=== PATIENT | female | born 1995 | race Caucasian/White ===

== ENCOUNTER 2018-05-26 17:12 | Emergency (ER) | payer OTHER ==
[~2018-05-26] VITALS: Ht 157.5 cm; Wt 68.0 kg
[2018-05-26 17:26] VITALS: BP 117/68
--- NOTE | 2018-05-26 17:28 | NUR ---
ED Nurse Note: a/ox4. ambulated in to ER due to medrefill for prozac 10mg daily and zyprexa 7.5mg HS.
[2018-05-26] MEDS ORDERED: ZYPREXA7.5 MG ORAL (17:29)
[2018-05-26] MEDS ORDERED: PROZAC10 MG ORAL ×2 (17:29→17:49)
--- NOTE | 2018-05-26 17:42 | NUR ---
ED Nurse Note: pt reports last dose she took was May 08, 2018
[2018-05-26] MEDS ORDERED: ZYPREXA5 MG ORAL (17:49)
--- NOTE | 2018-05-26 17:49 | Emergency Room Report ---
History of Present Illness General Chief Complaint: Medication Refill Source: Patient Present Illness HPI 23-year-old female patient presents the ER requesting refill of medications. Patient states that she takes Prozac and Zyprexa. States that she has a history of bipolar, ADD, ODD, MMR, PTSD. States she does not currently have a primary care provider is not taking medications for the past couple weeks since being released from incarceration, states she was receiving medications while incarcerated. Denies acute complaints or side effects associated with medication use. Denies fever, chest pain, shortness of breath. Also requesting refill of Chesterton pain medication. States takes Chest[place] for back pain. Denies acute injury or trauma. Denies bowel or bladder incontinence. States pain is been present for "a while". Denies radiation of pain. Allergies: Coded Allergies: ACETAMINOPHEN (Verified Allergy, Unknown, 05/26/18) IBUPROFEN (Verified Allergy, Unknown, 05/26/18) [place] (Verified Allergy, Unknown, 05/26/18) Patient History Past Medical History: see triage record Now: No Reviewed Nursing Documentation: PMH: Agreed; PSxH: Agreed Nursing Documentation-PMH Hx Asthma: Yes Review of Systems All Other Systems: negative except mentioned in HPI Physical Exam Vital Signs Date Time Temp Pulse Resp B/P (MAP) Pulse Ox O2 Delivery O2 Flow Rate FiO2 05/26/18 17:25 98.2 80 18 117/68 97 Room Air Sp02 EP Interpretation: reviewed, normal General Appearance: well appearing, no apparent distress, alert, GCS 15, non- toxic Head: normocephalic, atraumatic Eyes: bilateral eye normal inspection, bilateral eye PERRL ENT: hearing grossly normal, normal pharynx, no angioedema, normal voice, uvula midline, moist mucus membranes Neck: full range of motion Respiratory: lungs clear, normal breath sounds, no rhonchi, no respiratory distress, no accessory muscle use, no wheezing, speaking full sentences Cardiovascular #1: regular rate, rhythm, no edema Musculoskeletal: back normal, digits/nails normal, gait/station normal, normal range of motion, non-tender Neurologic: alert, oriented x3, responsive, motor strength/tone normal, sensory intact Psychiatric: mood/affect normal Skin: no rash Medical Decision Making PA Attestation Dr. Blanton is my supervising Physician whom patient management has been discussed with. Diagnostic Impression: Primary Impression: Encounter for medication refill ER Course Pt. presents to the ED requesting prescription refill. Multiple differentials were considered. Vital signs: are WNL, pt. is afebrile ORDERS: PE benign, denies acute complaints. Informed patient would provide refill of Prozac and Zyprexa medication however we will not refill Chest[place] pain medication. Needs to followup with PCP and mental health professional for further treatment and monitoring of medications. Will provide patient with 10 day supply of medication. Informed patient that Chest[place] contains Tylenol, likely does not have allergy to acetaminophen. Informed patient may take acetaminophen for back pain symptoms when present. Advised on ice and heat. Contact primary care provider for further treatment. Follow-up with mental health professional. Provided with contact information for mental health urgent care. Informed patient ER cannot provide refills in the future; followup, management and prescription of long-term medications must be performed by primary care provider. ER precautions given. Patient in the ER with family member, discharged with family member. DISCHARGE: At this time pt is stable for d/c to home. Patient is resting comfortably, in no acute distress, nontoxic appearing, talking without difficulty. Patient to take medications as instructed Will provide with patient care instructions and any necessary prescriptions. Care plan and follow-up instructions provided. Patient instructed to follow-up with primary care provider in 3 - 5 days. Patient questions asked and answered. Patient reports understanding and agreement to treatment plan. ER precautions given. Patient instructed to return to ER immediately for any new or worsening of symptoms including but not limited to increasing SOB, persistent fever. - Please note that this Emergency Department Report was dictated using [employer] manager technology software, occasionally this can lead to erroneous entry secondary to interpretation by the dictation equipment. Last Vital Signs Date Time Temp Pulse Resp B/P (MAP) Pulse Ox O2 Delivery O2 Flow Rate FiO2 05/26/18 17:25 98.2 80 18 117/68 97 Room Air Disposition: HOME, SELF-CARE Condition: Stable Scripts Fluoxetine Hcl* (PROZAC*) 10 Mg Capsule 10 MG ORAL DAILY, #10 CAP Prov: Tj Crespo P.A. 05/26/18 Olanzapine* (ZYPREXA*) 5 Mg Tablet 15 MG ORAL DAILY, #30 TAB Prov: Tj Crespo P.A. 05/26/18 Patient Instructions: Medicine Refill at the Emergency Department Additional Instructions: Followup with primary care provider in 3 -5 days. Followup with mental health urgent care. Establish care with mental health professional. Take medications as directed. Patient questions asked and answered. ER precautions given, patient instructed to return to ER immediately for any new or worsening of symptoms. Tj Crespo May 26, 2018 17:49
[2018-05-26 18:06] VITALS: BP 117/68
--- NOTE | 2018-05-26 18:06 | NUR ---
ED Nurse Note: Patient is being discharged from medical care. Awake, alert and oriented x4. After care instructions, including prescriptions. Patient verbalized understanding of After care instructions. Patient signed patient consent in the medical record for patient destination upon discharge. All medical devices such as IV and ID band were removed. Patient ambulated out with all personal belongings with steady gait.
== END 2018-05-26 18:07 | disposition home or self-care (01) ==
LOC: EMR 17:40
DX: Z76.0 Encounter for issue of repeat prescription (principal); J45.909 Unspecified asthma, uncomplicated; F31.9 Bipolar disorder, unspecified; F98.8 Other specified behavioral and emotional disorders with onset usually occurring in childhood and adolescence; F43.10 Post-traumatic stress disorder, unspecified; Z88.6 Allergy status to analgesic agent
CPT/HCPCS: 99283